=== PATIENT | male | born 2000 | race Caucasian/White ===

== ENCOUNTER 2021-12-28 21:56 | Emergency (ER) | payer OTHER ==
[~2021-12-28] VITALS: Ht 177.8 cm; Wt 63.5 kg
[2021-12-28] MEDS ORDERED: HALOPERIDOL LACTATE 5 MG/1 ML VIAL IV ONE (22:15)
[2021-12-28] MEDS ORDERED: diphenhydrAMINE 50 MG/1 ML VIAL IV ONE (22:15)
[2021-12-28] MEDS ORDERED: LORAZEPAM 2 MG/1 ML VIAL IV ONE (22:15)
[2021-12-28] MEDS ORDERED: LORAZEPAM 2 MG/1 ML VIAL IM ONE (22:30)
[2021-12-28] MEDS ORDERED: HALOPERIDOL LACTATE 5 MG/1 ML VIAL IM ONE (22:30)
[2021-12-28] MEDS ORDERED: diphenhydrAMINE 50 MG/1 ML VIAL IM ONE (22:30)
[2021-12-28] MEDS ORDERED: HALOPERIDOL LACTATE 5 MG/1 ML VIAL ONE (22:32)
[2021-12-28] MEDS ORDERED: diphenhydrAMINE 50 MG/1 ML VIAL ONE (22:32)
[2021-12-28] MEDS ORDERED: LORAZEPAM 2 MG/1 ML VIAL ONE (22:33)
[2021-12-28 23:36] LABS: MEAN CORPUSCULAR VOLUME 89.8 fL (73.0-96.2); PLATELET COUNT (AUTO) 234 K/uL (152-348)
[2021-12-28 23:44] LABS: CARBON DIOXIDE 28 mmol/L (21-32); CHLORIDE 95 mmol/L (98-107); CREATININE 1.1 mg/dL (0.6-1.3); GLUCOSE 125 mg/dL (74-106); POTASSIUM 3.1 mmol/L (3.5-5.1); UREA NITROGEN, BLOOD 18 mg/dL (7-18)
--- NOTE | 2021-12-28 23:45 | NUR ---
pts restraints were removed as pt is calm, arouses to verbal.
--- NOTE | 2021-12-28 23:49 | NUR ---
consulted with Dr. Solis he states to hold off on starting an iv at this time. pt is unable to void his shorts are wet with urine. pt is asking for food and drink. provided a bag of food for the pt.
[2021-12-28 23:56] LABS: ALANINE AMINOTRANSFERASE 44 U/L (16-63); ALKALINE PHOSPHATASE 97 U/L (50-136); ASPARTATE AMINOTRANSFERASE 48 U/L (15-37); BILIRUBIN,DIRECT 0.3 mg/dL (0.0-0.2); BILIRUBIN,TOTAL 1.5 mg/dL (0.2-1.0); TOTAL PROTEIN, SERUM 7.9 g/dL (6.4-8.2)
[2021-12-28 23:57] LABS: ACETAMINOPHEN < 2.0 ug/mL (10-30)
[2021-12-29 00:06] LABS: ETHANOL < 3 MG/DL (0-0)
[2021-12-29] MEDS ORDERED: BACITRACIN ZINC OINT 15 GM TUBE ONE (00:10)
[2021-12-29] MEDS ORDERED: BACITRACIN ZINC OINT 15 GM TUBE TOP ONE (00:15)
--- NOTE | 2021-12-29 00:28 | NUR ---
pt remains drowsy but will wake up to strong verbal, placed in and out urine cath, sent urine to the lab.
[2021-12-29 00:41] LABS: *BILIRUBIN,URIN NEGATIVE (NEGATIVE); *CLARITY,URINE CLEAR (CLEAR); *COLOR,URINE YELLOW (YELLOW); *KETONES,URINE 1+ (NEGATIVE); *UROBILINOGEN,URINE 0.2 E.U./dl (NORMAL); LEUKOCYTE ESTERASE ,URINE NEGATIVE (NEGATIVE); NITRITE, URINE NEGATIVE (NEGATIVE); PH,URINE 5.5 (5.0-8.0); UGLUCOSE NEGATIVE (NEGATIVE)
[2021-12-29 00:43] LABS: *BLOOD, URINE TRACE (NEGATIVE)
[2021-12-29] MEDS ORDERED: POTASSIUM BICARBONATE/CIT AC 25 MEQ TABLET.EFF PO ONE (00:45)
[2021-12-29 00:52] LABS: BACTERIA,URINE NONE SEEN /HPF (NONE SEEN); SPERM,URINE MODERATE /HPF (NONE SEEN); SQUAMOUS EPITHELIAL CELL,UR FEW /HPF (NONE SEEN); WBC,URINE 0-3 /HPF (0-3)
[2021-12-29 00:56] LABS: *AMPHETAMINE, URINE POSITIVE (NEGATIVE); *CANNABINOID, URINE POSITIVE (NEGATIVE); *COCCAINE, URINE NEGATIVE (NEGATIVE); *OPIATE, URINE NEGATIVE (NEGATIVE); *PHENCYCLIDINE SCREEN,URINE NEGATIVE (NEGATIVE)
--- NOTE | 2021-12-29 02:19 | NUR ---
pt remains resting with eyes closed.
[2021-12-29] MEDS ORDERED: POTASSIUM BICARBONATE/CIT AC 25 MEQ TABLET.EFF ONE (05:09)
--- NOTE | 2021-12-29 05:15 | NUR ---
pt more awake, gave potassium as ordered. pt states "can you tuck me in."
--- NOTE | 2021-12-29 07:07 | NUR ---
report given to Janelle pt will be d/c when more awake.
--- NOTE | 2021-12-29 07:15 | NUR ---
Received patient asleep easly aroused by stimuli. Vitals as follows; BP 126/80 DE-63 RR-18 T-97.6 SPO2- 98% RA.
--- NOTE | 2021-12-29 07:22 | NUR ---
PATIENT IS SLEEPING, VITAL SIGNS STABLE, ON A MONITOR
--- NOTE | 2021-12-29 07:30 | NUR ---
Patient awake, asked for water and was given with no signs of aspiration noted. Patient offered food and consumed 80% of the food given. Patient is lying in stetcher comfortably, patient denies pain or discomfort.
--- NOTE | 2021-12-29 08:22 | NUR ---
match up worker, Asehly here at bedside for eval.
--- NOTE | 2021-12-29 09:35 | NUR ---
I gave patient some clean clothes. I asked him if he wants to contact his parents or anyone. At first he said yes, "my parents live in [place] and I know their number" then when I brought him a phone he said"no, I dont want to call them, I want to leave now".
--- NOTE | 2021-12-29 10:23 | NUR ---
DC and follow up instructions given and explained to patient who states he understands all instructions. Denied need for transporation or detention upon discharge
== END 2021-12-29 10:25 | disposition home or self-care (01) ==
LOC: ER 22:04 → EDBD 22:04 → ER 12-29 10:25
DX: F15.129 Other stimulant abuse with intoxication, unspecified (principal); S80.811A Abrasion, right lower leg, initial encounter; W25.XXXA Contact with sharp glass, initial encounter; Y93.89 Activity, other specified; Y92.89 Other specified places as the place of occurrence of the external cause; Z78.1 Physical restraint status
CPT/HCPCS: 36415; 80048; 80076; 80299; 80307; 80320; 81001; 85025; 93005; 96372 ×2; 99285; J1200; J1630; J2060; A4663; C1758; G0480